=== PATIENT | female | born 1985 | race Hispanic/Latino ===

== ENCOUNTER 2019-06-21 08:26 | Emergency (ER) | payer MEDICARE ==
[~2019-06-21] VITALS: Ht 160 cm; Wt 90.7 kg
== END 2019-06-21 11:25 | disposition home or self-care (01) ==
LOC: ED 08:26
DX: G43.909 Migraine, unspecified, not intractable, without status migrainosus (principal); Z91.013 Allergy to seafood; Z91.040 Latex allergy status
CPT/HCPCS: 96374; 96375; 99283-25; J1200; J1885; J2175; J2550